=== PATIENT | female | born 1965 | race Caucasian/White ===

== ENCOUNTER 2017-12-30 17:41 | Emergency (ER) | payer OTHER ==
[~2017-12-30] VITALS: Ht 152.4 cm; Wt 108.9 kg
[2017-12-30] MEDS ORDERED: MOBIC7.5 M1 PO (18:17)
[2017-12-30] MEDS ORDERED: HYDROXYZINE HCL25 M1 PO (18:17)
[2017-12-30] MEDS ORDERED: PHENTERMINE H37.5 M1 PO (18:18)
[2017-12-30 18:59] LABS: ABSOLUTE EOSINOPHILS 0.1 thou/uL (0.0-0.7); ABSOLUTE LYMPHOCYTES 2.5 thou/uL (0.8-5.3); ABSOLUTE MONOCYTES 0.7 thou/uL (0.0-1.2); ABSOLUTE NEUTROPHILS 3.9 thou/uL (1.6-8.1); BASOPHILS 0.5 %; EOSINOPHILS 1.2 %; HEMATOCRIT 41.1 % (37.0-47.0); HEMOGLOBIN 13.6 gm/dL (12.0-15.0); MCH 28.9 pg (26.0-34.0); MCHC 33.1 g/dL (28.0-37.0); MCV 87.3 fL (80.0-100.0); MONOCYTES 9.7 %; MPV 8.5 fl. (7.2-11.1); NUCLEATED RBCS 0 /100WBC; PLATELET COUNT* 224 thou/uL (150-400); POLYS 53.6 %; RBC 4.71 mil/uL (4.20-5.00); RDW-CV 13.9 % (10.5-14.5); WBC 7.3 thou/uL (4.0-11.0)
[2017-12-30 19:03] LABS: ANION GAP 7 mmol/L (7-16); BUN 16 mg/dL (7-18); CALCIUM 8.7 mg/dL (8.5-10.1); CHLORIDE 104 mmol/L (98-107); CO2 28 mmol/L (21-32); CREATININE 0.7 mg/dL (0.6-1.3); GLUCOSE 96 mg/dL (70-99); POTASSIUM 3.7 mmol/L (3.5-5.1); SODIUM 139 mmol/L (136-145)
[2017-12-30 19:10] LABS: ALBUMIN 3.5 g/dL (3.4-5.0); ALKALINE PHOSPHATASE 94 U/L (46-116); SGOT 14 U/L (15-37); SGPT 23 U/L (30-65); TOTAL BILIRUBIN 0.2 mg/dL (<0.1-1.0); TOTAL PROTEIN 7.1 g/dL (6.4-8.2); TROPONIN-I LEVEL <0.06 ng/mL (<0.06)
[2017-12-30 20:10] VITALS: BP 141/78
--- NOTE | 2017-12-31 11:20 | EKG ---
[place] [address] ELECTROCARDIOGRAM REPORT Name: JEFFERSON GONZALEZ [id number] Admission: 12/30/17 Attend Phys: Discharge: 12/30/17 Date of : 69 Report #: [id number] THIS REPORT FOR: //name// [facility] ED Test Date: 2017-12-30 Test Time: 18:07:33 Pat Name: JEFFERSON GONZALEZ Department: Room: Gender: F Recreation Programmer: ARNOLDO : 1965 Requested By: Jeanette Mckeon Order Number: [id number] MD: Abelardo Gallardo Measurements Intervals [place] Rate: 72 P: -6 HI: 181 QRS: 42 QRSD: 103 T: 23 QT: 395 QTc: 433 Interpretive Statements Sinus rhythm No previous ECG available for comparison Electronically Signed On 12-31-2017 11:20:08 CDT by Abelardo Gallardo [email or web address] <ELECTRONICALLY SIGNED> By: Abelardo Gallardo MD, [facility] 12/31/17 1120 1807 1807 Abelardo Gallardo MD, FACC /EPI
--- NOTE | 2017-12-31 11:21 | EKG ---
[place] [address] ELECTROCARDIOGRAM REPORT Name: JEFFERSON GONZALEZ [id number] Admission: 12/30/17 Attend Phys: Discharge: 12/30/17 Date of : 69 Report #: [id number] THIS REPORT FOR: //name// [facility] ED Test Date: 2017-12-30 Test Time: 19:41:28 Pat Name: JEFFERSON GONZALEZ Department: Room: Gender: F Manufacturing Coordinator: UNKNOWN : 1965 Requested By: Jeanette Mckeon Order Number: [id number] MD: Abelardo Gallardo Measurements Intervals [place] Rate: 66 P: -2 SC: 178 QRS: 20 QRSD: 112 T: 12 QT: 407 QTc: 427 Interpretive Statements Sinus rhythm septal infarct, old Borderline T abnormalities, inferior leads Baseline wander in lead(s) II,III,aVF Electronically Signed On 12-31-2017 11:20:57 CDT by Abelardo Gallardo [email or web address] <ELECTRONICALLY SIGNED> By: Abelardo Gallardo MD, [facility] 12/31/171119 40 40 Abelardo Gallardo MD, FACC /EPI
== END 2017-12-30 20:11 | disposition home or self-care (01) ==
LOC: M.ERS 17:41
PROVIDERS: Nurse Practitioner Family
DX: E00.2 Congenital iodine-deficiency syndrome, mixed type (principal); Z90.49 Acquired absence of other specified parts of digestive tract